=== PATIENT | male | born 1995 | race Caucasian/White ===

== ENCOUNTER 2020-05-31 20:59 | Emergency (ER) | payer OTHER ==
[~2020-05-31] VITALS: Ht 172.7 cm; Wt 113.4 kg
[2020-05-31 21:03] VITALS: BP 173/101; Ht 172.7 cm; Wt 113.4 kg
== END 2020-05-31 21:15 ==
LOC: ED 20:59
DX: Z02.89 Encounter for other administrative examinations (principal)